=== PATIENT | female | born 1955 | race Caucasian/White ===

== ENCOUNTER 2025-01-30 13:58 | Outpatient (CLI) | payer MEDICARE, SELFPAY ==
[2025-01-30 14:20] LABS: Abs Immature Grans 0.01 10^3/uL (0.0-0.06); HCT 37.1 % (36.0-46.0); HGB 12.8 g/dL (11.2-15.7); Immature Grans % 0.2 %; MCH 28.8 pg (27.0-33.0); MCHC 34.5 % (32.0-36.0); MCV 83 fL (80-95); MPV 8.7 fL (8.0-11.0); Platelet Count 125 10^3/uL (130-400); RBC 4.45 10^6/uL (3.93-5.22); RDW 13.0 % (11.7-14.6); RDW-SD 39.5 fL; WBC 4.91 10^3/uL (4.4-10.8)
[2025-01-30 15:13] LABS: ALT 29 U/L (14-59); AST 21 U/L (15-37); Albumin 3.2 g/dL (3.4-5.0); Alkaline Phosphatase 53 U/L (46-116); Anion Gap 11.2 mmol/L (3-11); BUN 21 mg/dL (7-18); Bilirubin, Total 0.4 mg/dL (0.2-1.0); CO2 24.8 mmol/L (21.0-32.0); Calcium 8.9 mg/dL (8.5-10.1); Chloride 104 mmol/L (98-107); Estimated GFR 69.20 (mL/min/1.73m2); Glucose 113 mg/dL (74-106); Potassium 3.0 mmol/L (3.5-5.1); Sodium 140 mmol/L (136-145); Total Protein 7.3 g/dL (6.4-8.2)
[2025-02-01 10:26] LABS: Lyme Ab w Rflx to Lyme Confirm Negative (Negative)
[2025-02-03 01:29] LABS: B. miyamotoi PCR Negative (Negative); Babesia divergens/MO-1 Negative (Negative); Ehrlichia muris eauclairensis Negative (Negative)
== END 2025-01-30 13:59 | disposition home or self-care (01) ==
PROVIDERS: Visit Provider Nurse Practitioner Family
DX: S40.261A Insect bite (nonvenomous) of right shoulder, initial encounter (principal); W57.XXXA Bitten or stung by nonvenomous insect and other nonvenomous arthropods, initial encounter
CPT/HCPCS: 36415; 80053; 87798; 85025; 86618